=== PATIENT | male | born 2000 | race Caucasian/White ===

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

== ENCOUNTER 2019-04-26 09:04 | Emergency (ER) | payer SELFPAY | END 2019-04-26 09:26 | disposition home or self-care (01) | LOC: BURERS 09:04 | DX: J02.9 Acute pharyngitis, unspecified (principal) | CPT/HCPCS: 99281 ==

== ENCOUNTER 2022-01-31 08:46 | Emergency (ER) | payer SELFPAY | END 2022-01-31 10:18 | disposition home or self-care (01) | LOC: BURERS 08:46 | DX: B34.9 Viral infection, unspecified (principal); Z20.822 Contact with and (suspected) exposure to COVID-19 | CPT/HCPCS: 87804; 99283; U0003; U0005 ==